=== PATIENT | female | born 1965 | race Caucasian/White ===

== ENCOUNTER 2016-11-13 20:11 | Emergency (ER) | payer BC ==
[~2016-11-13] VITALS: Ht 154.9 cm; Wt 68.0 kg
== END 2016-11-13 21:53 | disposition home or self-care (01) ==
LOC: ED 20:11
DX: S06.0X1A Concussion with loss of consciousness of 30 minutes or less, initial encounter (principal); F17.200 Nicotine dependence, unspecified, uncomplicated; Z90.49 Acquired absence of other specified parts of digestive tract; Z88.8 Allergy status to other drugs, medicaments and biological substances; W10.9XXA Fall (on) (from) unspecified stairs and steps, initial encounter; Y93.89 Activity, other specified; Y92.9 Unspecified place or not applicable; Y99.9 Unspecified external cause status

== ENCOUNTER 2018-03-30 19:36 | Emergency (ER) | payer OTHER, BC ==
[~2018-03-30] VITALS: Ht 154.9 cm; Wt 68.0 kg
[2018-03-30] MEDS ORDERED: NORCO 5-325 TA1 EACH PO (22:15)
== END 2018-03-30 22:07 | disposition home or self-care (01) ==
LOC: ED 19:36
DX: S70.01XA Contusion of right hip, initial encounter (principal); S80.01XA Contusion of right knee, initial encounter; S00.83XA Contusion of other part of head, initial encounter; Z88.8 Allergy status to other drugs, medicaments and biological substances; Z90.49 Acquired absence of other specified parts of digestive tract; V43.52XA Car driver injured in collision with other type car in traffic accident, initial encounter; Y93.89 Activity, other specified; Y92.89 Other specified places as the place of occurrence of the external cause; Y99.8 Other external cause status

== ENCOUNTER → 2018-04-03 | Outpatient (CLI) | payer BC ==
[~2018-04-03] MED LIST: NORCO 5-325 TA1 EACH PO
== END ==
LOC: RESCLI 03:38
DX: E55.9 Vitamin D deficiency, unspecified (principal); M25.561 Pain in right knee; M54.5 Low back pain; E66.9 Obesity, unspecified; V89.2XXD Person injured in unspecified motor-vehicle accident, traffic, subsequent encounter; Z87.891 Personal history of nicotine dependence

== ENCOUNTER → 2018-05-15 | Outpatient (CLI) | payer BC | END | disposition home or self-care (01) | LOC: ORTHO 04:26 | DX: M25.561 Pain in right knee (principal); M79.672 Pain in left foot; M79.671 Pain in right foot; M25.521 Pain in right elbow; M79.89 Other specified soft tissue disorders; V89.2XXD Person injured in unspecified motor-vehicle accident, traffic, subsequent encounter ==

== ENCOUNTER → 2018-06-12 | Outpatient (CLI) | payer BC | END | disposition home or self-care (01) | LOC: RESCLI 00:53 | DX: F41.9 Anxiety disorder, unspecified (principal); M25.521 Pain in right elbow; M79.671 Pain in right foot; F51.01 Primary insomnia; J02.9 Acute pharyngitis, unspecified; R03.0 Elevated blood-pressure reading, without diagnosis of hypertension; E66.9 Obesity, unspecified; V89.2XXS Person injured in unspecified motor-vehicle accident, traffic, sequela; Z79.899 Other long term (current) drug therapy; Z88.8 Allergy status to other drugs, medicaments and biological substances; Z87.891 Personal history of nicotine dependence ==

== ENCOUNTER → 2018-07-05 | Outpatient (CLI) | payer BC | END | disposition home or self-care (01) | LOC: ORTHO 01:49 | DX: S50.01XS Contusion of right elbow, sequela (principal); S90.31XS Contusion of right foot, sequela; V89.2XXD Person injured in unspecified motor-vehicle accident, traffic, subsequent encounter; X58.XXXS Exposure to other specified factors, sequela ==

== ENCOUNTER → 2018-09-20 | Outpatient (CLI) | payer BC | END | disposition home or self-care (01) | LOC: ORTHO 01:36 | DX: M54.5 Low back pain (principal); V89.2XXD Person injured in unspecified motor-vehicle accident, traffic, subsequent encounter ==

== ENCOUNTER → 2021-06-03 | Outpatient (CLI) | payer BC ==
[2021-06-03 09:59] LABS: CREATININE 0.92 mg/dL (0.55-1.02)
== END | disposition home or self-care (01) ==
LOC: CT 09:26
PROVIDERS: Radiology Diagnostic Radiology; ATTEND Family Medicine
DX: U07.1 COVID-19 (principal); J12.82 Pneumonia due to coronavirus disease 2019